=== PATIENT | male | born 1955 | race Caucasian/White ===

== ENCOUNTER 2017-11-22 13:20 | Emergency (ER) | payer BC, OTHER ==
[2017-11-22] MEDS ORDERED: Ketorolac 60 MG/2 ML SDV IM ONE (13:57)
--- NOTE | 2017-11-22 14:18 | EDM.PDOC ---
ED HPI GENERAL MEDICAL PROBLEM - General Chief Complaint: Back Pain or Injury Stated Complaint: BACK PAIN Time Seen by Provider: 11/22/17 13:47 Source of Information: Reports: Patient History Limitations: Reports: No Limitations - History of Present Illness INITIAL COMMENTS - FREE TEXT/NARRATIVE: 62-year-old male presents for evaluation and treatment of low back pain with radiation into his right leg. Patient reports he has had discomfort for last few weeks. His is present states he has been complaining of low back pain for years. Reports since he has been experiencing pain in the right leg. He states on Wednesday he went to work. Reports on Wednesday he was lifting a pickup box. 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 Reports he has been experiencing significant pain in his low back with radiation to his right leg. Also reports numbness and tingling into his right leg. Reports it goes down to his knee. Reports the pain improves with sitting. worsens with walking. No fevers, chills, nausea, vomiting, urinary incontinence, stool incontinence or saddle anesthesia. He has been taking [id number] medication for pain relief. Reports some pain relief with the [id number] medications. States today he took a pain pill that he had from his knee surgery in 2010. Unsure exactly what this was. Took this from 0800 this morning. Reports he went to the chiropractor today they attempted to be manipulated him but he did not find any relief from this. Reports that he has an appointment with Dr. Chun on December 01. Back Pain Score (Numeric/FACES): 2 - Related Data Allergies Allergy/AdvReac Type Severity Reaction Status Date / Time No Known Allergies Allergy Verified 11/22/17 13:31 Home Meds: Home Meds Acetaminophen/oxyCODONE [Percocet 325-5 MG] 1 tab PO Q6H PRN #20 tablet [Rx] Orphenadrine [Norflex] 100 mg PO BID PRN #20 tab.er 11/22/17 [Rx] Past Medical History - Past Health History Medical/Surgical History: Denies Medical/Surgical History - Past Surgical History GI Surgical History: Reports: Appendectomy Musculoskeletal Surgical History: Reports: Other (See Below) Other Musculoskeletal Surgeries/Procedures:: Knee surgery Social & Family History - Family History Family Medical History: Noncontributory - Tobacco Use Smoking Status *Q: Current Every Day Smoker Years of Tobacco use: 46 Packs/Tins Daily: 1 - Caffeine Use Caffeine Use: Reports: Soda - Recreational Drug Use Recreational Drug Use: No ED ROS GENERAL - Review of Systems Review Of Systems: See Below Constitutional: Denies: Fever Respiratory: Denies: Cough GI/Abdominal: Denies: Stool Incontinence : Denies: Incontinence Musculoskeletal: Reports: Back Pain, Leg Pain Neurological: Reports: Numbness (right leg), Tingling (right leg), Difficulty Walking (due to pain), Other. Denies: Weakness ED EXAM,LOWER BACK PAIN/INJURY - Physical Exam Exam: See Below Exam Limited By: No Limitations General Appearance: Alert, WD/WN, No Apparent Distress Respiratory/Chest: No Respiratory Distress, Lungs Clear, Normal Breath Sounds Cardiovascular: Normal Peripheral Pulses, Regular Rate, Rhythm, No Murmur Back Exam: Normal Inspection, Decreased Range of Motion (pain with right lateral flexion; able to rotate without pain or problem ), Other (pain to the right sciatic notch). No: Vertebral Tenderness Extremities: Normal Inspection Neurological: Alert, Normal Mood/Affect, Normal Dorsiflexion, Normal Plantar Flexion, Normal Gait. No: Straight Leg Raise (L), Straight Leg Raise (R), Saddle Anesthesia Psychiatric: Normal Affect, Normal Mood Skin Exam: Warm, Dry, Normal Color Course - Vital Signs Last Recorded V/S: Last Vital Signs Temp 36.7 C 11/22/17 13:25 Pulse 64 11/22/17 13:25 Resp 18 11/22/17 13:25 BP 188/96 H 11/22/17 13:25 Pulse Ox 97 11/22/17 13:25 - Orders/Labs/Meds Meds: Medications Discontinued Medications Generic Name Dose Route Start Last Admin Trade Name Freq PRN Reason Stop Dose Admin Ketorolac Tromethamine 60 mg 11/22/17 13:57 11/22/17 14:18 Toradol IM 11/22/17 13:58 60 mg ONETIME ONE Administration - Radiology Interpretation Free Text/Narrative:: Lumbar spine: AP and lateral views of the lumbar spine were obtained. Comparison: No previous study. Severe disc space narrowing is noted at L2-3 and at L5-S1. Posterior disc space narrowing is noted at L3-L4. Minimal spondylolisthesis at L3-L4 by approximately 3 mm is seen. Mild scoliosis is present. Pedicles are intact. Transverse and spinous processes are intact. Vascular calcification is noted. Minimal loss of height of L2 noted which is felt to be old. Impression: 1. Degenerative change as noted above. Mild scoliosis and other incidental findings. - Re-Assessments/Exams Free Text/Narrative Re-Assessment/Exam: 11/22/17 15:08 I reviewed the lumbar spine xray with the patient . Reports little pain relief with the Toradol. Declined anything more for pain at this time. He has an appointment with Ortho next week Wednesday. Recommend follow-up as planned. They would like to go ahead and get an MRI scheduled so they can review results with ortho. I will place an outpatient order. Discharged instructions as documented. Departure - Departure Time of Disposition: 15:08 Disposition: Home, Self-Care 01 Condition: Fair Clinical Impression: Sciatic leg pain, Low back pain - Discharge Information Prescriptions: Acetaminophen/oxyCODONE [Percocet 325-5 MG] 1 tab PO Q6H PRN #20 tablet PRN Reason: Pain Orphenadrine [Norflex] 100 mg PO BID PRN #20 tab.er PRN Reason: Pain Instructions: Sciatica, [id number], Back Pain, Adult, [id number] Referrals: PCP,None [Primary Care Provider] - Jason Junior MD [Physician] - Forms: ED Department Discharge Additional Instructions: Norflex 1 tab twice a day as needed for muscle spasms and pain. OTC tylenol or motrin as needed for pain relief. Do not take more than 3200 mg of ibuprofen or more than 4grams of tylenol from all sources in one day. Percocet 1 tab PO every 4-6 hours as needed for severe pain. Do not drive or operate machinery within 12 hours of taking percocet. Percocet can be habit forming, I recommend you take as new of these as needed to control your pain. An outpatinet order has been placed for you to have an MRI of the lumbar spine. Please call [phone] and ask for the radiology department to schedule Recommend using ice or heat to the sore areas for additional pain relief. You may also try topical products such as icy hot or BenGay. Follow-up with Dr. Junior next week as planned. Activity as tolerated. Attempt to avoid bedrest, be active as much as possible but stop if you experience significant pain. Please return to the ER for symptoms change or worsen.
--- NOTE | 2017-11-29 12:39 | CR ---
Lumbar spine: AP and lateral views of the lumbar spine were obtained. Note: This study has only now been made available for interpretation. Comparison: No earlier lumbar spine study is available. Severe disc space narrowing is noted at L5-S1. Moderate to severe disc space narrowing noted at L2-L3. Mild disc space narrowing is noted at T11-T12. Posterior disc space narrowing at T12-L1 and at L1-L2 and at L3-L4. Scattered endplate osteophytes are seen. No acute appearing compression deformities are seen. Mild scoliosis is noted. Pedicles as well as transverse and spinous processes are intact. Vascular calcification is seen. Impression: 1. Degenerative change as noted above. Mild scoliosis is seen. Diagnostic code #2
== END 2017-11-22 15:28 | disposition home or self-care (01) ==
LOC: JD.ED 13:20
DX: M54.41 Lumbago with sciatica, right side (principal); M51.36 Other intervertebral disc degeneration, lumbar region; F17.210 Nicotine dependence, cigarettes, uncomplicated
CPT/HCPCS: 96372; 99283; J1885; 72100; 72100-26

== ENCOUNTER 2025-02-15 06:39 | Day surgery (SDC) | payer BC, MEDICARE ==
[~2025-02-15 06:39] MED LIST: Sodium Chloride 0.9% 10 ML Syringe FLUSH PRN; Sodium Chloride 0.9% 10 ML Syringe FLUSH SCH
[2025-02-15] MEDS ORDERED: Propofol 200 MG/20 ML SDV ONE (06:48)
[2025-02-15] MEDS ORDERED: Lidocaine 1% 4 ML ONE (06:48)
[2025-02-15] MEDS: Lactated Ringers 1,000 ML IV SCH (07:00)
== END 2025-02-15 08:59 | disposition home or self-care (01) ==
LOC: JD.SDS 06:39
PROVIDERS: ATTEND Surgery
DX: Z12.11 Encounter for screening for malignant neoplasm of colon (principal); D12.5 Benign neoplasm of sigmoid colon; D12.8 Benign neoplasm of rectum; K62.0 Anal polyp; R19.5 Other fecal abnormalities; K64.4 Residual hemorrhoidal skin tags; K57.30 Diverticulosis of large intestine without perforation or abscess without bleeding; I10 Essential (primary) hypertension; F17.210 Nicotine dependence, cigarettes, uncomplicated; Z79.899 Other long term (current) drug therapy; Z86.0100 Personal history of colon polyps, unspecified
CPT/HCPCS: 45380; 45385; 46922; J2003; J2704; J7120